=== PATIENT | female | born 1970 | race Caucasian/White ===

== ENCOUNTER → 2019-12-19 08:59 | Outpatient (BNVA) | payer BC, SELFPAY | PROVIDERS: Family Provider Family Medicine; Visit Provider Nurse Practitioner Women's Health | DX: Z01.419 Encounter for gynecological examination (general) (routine) without abnormal findings (principal); N95.1 Menopausal and female climacteric states | CPT/HCPCS: 88175 ==

== ENCOUNTER → 2020-01-22 08:51 | Outpatient (BNVA) | payer BC, SELFPAY | PROVIDERS: Family Provider Family Medicine; Visit Provider Nurse Practitioner Women's Health | DX: N95.0 Postmenopausal bleeding (principal) | CPT/HCPCS: 76830 ==

== ENCOUNTER 2020-02-10 12:46 | Emergency (ER) | payer BC, SELFPAY ==
--- NOTE | 2020-02-10 | XR_ITS ---
WS: [id number] Exam: XR chest 1V portable [id number] Date/Time of Exam: 02/10/2020 3:48 PM Reason For Exam: COVID symptoms No priors. There are patchy infiltrates scattered throughout both lungs. Normal cardiomediastinal structures and bony elements. No pneumothorax or pleural effusions. XR/XR chest 1V portable [id number] IMPRESSION: 1. Patchy groundglass pneumonic infiltrates noted bilaterally suggesting pneumo cade. This appearance is nonspecific but can be seen with Covid pneumonia.
[2020-02-10 13:04] VITALS: BP 137/91; PULSE 109; RESP 16; TEMP 36.4; O2SAT 94; BMI 34.7
--- NOTE | 2020-02-10 15:25 | W.ED.COVID ---
Documented by User: TIFFANIE Nieves 02/12/20 07:05 HPI - COVID General: Chief Complaint: COVID symptoms Stated Complaint: SOB, COVID POSITIVE Time Seen by Provider: 02/10/20 14:54 Triage information: Has fever, cough or shortness of breath. Exposure to COVID + person last 14 days History of Present Illness: HPI Narrative: 49-year-old female patient presents to the emergency department with Covid symptoms. She reports tested + 02/02/2020 at [facility]. She reports continued nausea vomiting diarrhea, reports concerned due to decreased appetite and diabetes. Reports blood sugar this morning was 112. Has not experienced hypoglycemia. She states attempted to get into her primary care who sent her to urgent care, reports urgent care will not see her until she is out of quarantine. She presents today requesting IV fluids and something for nausea and vomiting. She also reports worsening cough. MD complaint: known COVID positive Prior covid testing: yes, results known ([facility]) Prior testing date: 02/02/20 COVID 19 common symptoms: positive fever(s), chills, cough, non-productive cough, dyspnea, fatigue, body aches, headache(s), nasal congestion, nausea, vomiting and diarrhea COVID 19 other sytmptoms: negative chest pain Severity: moderate Pertinent comorbid conditions: diabetes Treatment prior to arrival: acetaminophen, ibuprofen and steroids COVID Results: No Data to Display Review of Systems General: Reports: 10 or more systems reviewed and unremarkable except in HPI and below Const: Reports: fever(s), chills, body aches and fatigue Eyes: Denies: blurry vision or eye redness ENMT: Reports: nasal discharge, nasal congestion and post nasal drip Card: Denies: chest pain, palpitations, irregular heart rhythm, swelling of feet/ankles or lightheadedness Resp: Reports: dyspnea and non-productive cough GI: Reports: nausea, vomiting and diarrhea; Denies: abdominal pain, constipation, change in bowel habits or pain on defecation : Denies: difficulty voiding or dysuria Musc: Denies: neck pain or back pain Skin/Breast: Denies: rash or pruritus Neuro: Reports: headache(s) Psych: Denies: anxiety or depression Paul/Lymph: Denies: easy bruising [facility] PFSH: Medical History (Updated 02/11/20 @ 12:48 by Teri Calero APRN) Diabetes Hypertension No pertinent past medical history neghx: thyroid,dvt/pe Surgical History H/O shoulder surgery left Hx of prior ablation treatment (~2009) uterine Family History Grandmother Colon cancer Maternal-- dx age 70s Breast cancer Paternal-- dx at age 20's Mother Diabetes Grandfather Hypertension Maternal Stroke Maternal Denies family history of Ovarian cancer Heart disease Hypercholesteremia Bleeding disorder Uterine cancer Social History Additional social history: - Tobacco use: Never Alcohol use: Socially-- drink per week Drug use: Never Physical Exam Const: COMMON NORMALS: no acute distress, patient oriented x3, healthy appearing, alert and well nourished GENERAL APPEARANCE: cooperative, comfortable, well hydrated and other (Does not appear toxic is hydrated) NUTRITIONAL APPEARANCE: obese ORIENTATION/CONSCIOUSNESS: Yes awake, Yes oriented to person, Yes oriented to place and Yes oriented to time HENMT: COMMON NORMALS: normocephalic, atraumatic, EAC's normal, TM's normal bilaterally, Normal external nose present and moist oral mucous membranes HEAD & SCALP: normal to inspection, normocephalic and atraumatic NOSE: Normal external nose present EXTERNAL AUDITORY CANAL: EAC's normal TYMPANIC MEMBRANE: TM's normal bilaterally MOUTH: Normal oral and palatal mucosa present Eye: COMMON NORMALS: Equal, round and reactive pupils present and EOMs intact bilaterally GENERAL EYE: appearance normal, both eyes and all related structures PUPIL: Yes Equal, round and reactive pupils present Neck/C-Spine: COMMON NORMALS: full ROM and no lymphadenopathy GENERAL: Yes normal visual inspection and Yes trachea midline CERVICAL SPINE: Yes cervical ROM normal Lymph: LYMPHATIC: no lymphadenopathy noted Chest: COMMONS NORMALS: normal inspection of the chest and normal palpation of entire chest wall Resp: COMMON NORMALS: normal respiratory effort, No retractions, No use of accessory muscles and clear to auscultation bilaterally EFFORT & INSPECTION: Yes able to speak in complete sentences, No decreased respiratory effort and No labored AUSCULTATION: clear to auscultation bilaterally Cardio: COMMON NORMALS: regular rate, regular rhythm, S1 normal heart sound present, S2 normal heart sound present and Peripheral pulses 2+ throughout RATE: regular rate RHYTHM: regular rhythm HEART SOUNDS: S1 normal heart sound present and S2 normal heart sound present PERIPHERAL PULSES: Peripheral pulses 2+ throughout GI: COMMON NORMALS: Normal to inspection, nondistended, normoactive bowel sounds present, Soft to palpation and non-tender INSPECTION: Yes normal to inspection PALPATION: Yes Soft to palpation : COMMON NORMALS: Yes no CVA tenderness BLADDER/KIDNEY EXAM: Yes no CVA tenderness Back/Pelvis: COMMON NORMALS: no CVA tenderness and thoracic and lumbar spine normal to inspection Extremity: COMMON NORMALS: normal to inspection, full ROM and capillary refill normal GENERAL: Yes normal exam except as noted Neuro: COMMON NORMALS: patient oriented x3 and no focal motor deficits SENSORIUM/ORIENTATION: Yes alert, Yes oriented to person, Yes oriented to place and Yes oriented to time Psych: COMMON NORMALS: mental status grossly normal, Normal thought process present and cooperative ACTIVITY/MOTOR BEHAVIOR: Yes appropriate eye contact THOUGHT PROCESS: Normal thought process present Skin: COMMON NORMALS: no rashes or lesions noted and turgor normal GENERAL SKIN EXAM: no rashes or lesions noted and turgor normal Course Vital Signs: Vital signs: Vital Signs Temperature 97.6 F 02/10/20 13:04 Pulse Rate 101 H 02/10/20 19:34 Respiratory Rate 16 02/10/20 19:34 Blood Pressure 117/78 02/10/20 19:34 Pulse Oximetry 94 02/10/20 19:34 MDM - COVID Lab Data: Labs: Lab Results 02/10/20 02/10/20 Range/Units 18:05 18:05 WBC 9.6 (4.0-10.0) 10^3/ uL RBC 4.99 (4.1-5.3) 10^6/u L Hgb 14.0 (11.5-15.3) g/dL Hct 42.4 (37.0-47.0) % MCV 85.0 (81-99) fL MCH 28.1 (28.0-34.0) pg MCHC 33.0 (30.0-36.0) g/dL RDW 12.8 (12.1-15.1) % Plt Count 255 (130-400) 10^3/c mm MPV 9.1 (7.4-10.4) fL Neut % (Auto) 66.4 % Lymph % (Auto) 21.5 % [place] % (Auto) 9.7 % Eos % (Auto) 1.6 % Baso % (Auto) 0.3 % Neut # (Auto) 6.40 (1.8-7.7) 10^3/u L Lymph # (Auto) 2.1 (0.8-4.8) 10^3/u L [place] # (Auto) 0.9 (0.2-0.9) 10^3/u L Eos # (Auto) 0.2 (0.0-0.8) 10^3/u L Baso # (Auto) 0.0 (0.0-0.1) 10^3/u L Nucleated RBC % (a uto) 0 % Nucleated RBCs # 0.0 /100WBC Sodium 137 (136-145) mmol/L Potassium 3.2 L (3.5-5.1) mmol/L Chloride 96 L (98-107) mmol/L Carbon Dioxide 29 (22-29) mmol/L Anion Gap 15.2 (5-19) BUN 6 (6-20) mg/dL Creatinine 0.4 L (0.5-0.9) mg/dL GFR Calculation 170.4 H (90-130) mL/min Glucose 220 H (65-115) mg/dL Calculated Osmolal ity 288 (285-295) mOsm/k g Calcium 9.4 (8.5-10.5) mg/dL Total Bilirubin 0.6 (0.15-1.2) mg/dL AST 18 (0-32) U/L ALT 26 (0-33) U/L Alkaline Phosphata se 110 H (35-105) IU/L Total Protein 7.0 (6.6-8.7) g/dL Albumin 3.8 (3.5-5.2) g/dL Globulin 3.2 (1.3-4.6) g/dL Imaging Data: CXR: Radiologist's impression: [address] [address] XRay Report Signed Patient: Farrah Burgess Unit #: [id number] : 1970 Age/Sex: 49 / F ADM Date: 02/10/20 Loc: ER Room/Bed: Attending Dr: Ordering Provider/Ordering MD: Suzan Arana Date of Service: 02/10/20 Procedure(s): XR chest 1V portable [id number] Accession Number(s): [id number] Report Number: [id number] WS: [id number] Exam: XR chest 1V portable [id number] Date/Time of Exam: 02/10/2020 3:48 PM Reason For Exam: COVID symptoms No priors. There are patchy infiltrates scattered throughout both lungs. Normal cardiomediastinal structures and bony elements. No pneumothorax or pleural effusions. XR/XR chest 1V portable [id number] IMPRESSION: 1. Patchy groundglass pneumonic infiltrates noted bilaterally suggesting pneumonia. This appearance is nonspecific but can be seen with Covid pneumonia. Dictated By: Wilfredo Sheikh DO Signed By: Wilfredo Sheikh DO Signed Date/Time: 02/10/201622 DD/ 162 COVID Results: No Data to Display Discharge Plan Discharge Patient Disposition: Home Clinical Impression: COVID-19, Viral illness Condition: Stable Prescriptions: New Zofran 4 mg tablet 4 mg PO Q4H 5 Days Qty: 14 RF: 0 benzonatate 200 mg capsule 200 mg PO TID PRN (Reason: cough) Qty: 20 RF: 0 azithromycin 250 mg tablet See Rx Instructions .ROUTE .COMPLEX Qty: 6 RF: 0 No Action Ozempic 0.25 mg or 0.5 mg(2 mg/1.5 mL) pen injector SUBCUT RF: 0 metformin 1,000 mg tablet 1,000 mg PO BID RF: 0 omeprazole magnesium [Prilosec OTC] 20 mg tablet,delayed release (DR/EC) 20 mg PO DAILY RF: 0 lisinopril 5 mg tablet 5 mg PO DAILY RF: 0 Basaglar KwikPen U-100 Insulin 100 unit/mL (3 mL) insulin pen 60 unit SUBCUT DAILY RF: 0 multivitamin Tablet 1 tab PO DAILY RF: 0 cholecalciferol (vitamin D3) 25 mcg (1,000 unit) capsule 25 mcg PO DAILY RF: 0 zinc acetate 25 mg (zinc) capsule 25 mg PO DAILY RF: 0 ascorbic acid (vitamin C) 100 mg tablet 100 mg PO DAILY RF: 0 Zyrtec 10 mg capsule 10 mg PO DAILY RF: 0 Digestive Advantage Advanced 10 billion cell capsule PO RF: 0 medroxyprogesterone [Provera] 2.5 mg tablet 2.5 mg PO DAILY Qty: 30 RF: 3 metronidazole 0.75 % gel 1 appful vaginal DAILY 5 Days Qty: 70 RF: 0 CombiPatch 0.05-0.25 mg/24 hr patch semiweekly 1 patch transdermal .twice weekly Qty: 24 RF: 3 Discharge Orders: Discharge ED (Routine); Ordered 02/10/20 Ordered By: Suzan Arana Referrals: Augusto Carrasquillo, [Family Provider] - Discharge Diet: Advance as tolerated and Clear Liquid Discharge Activity: Limit activity as instructed Patient Instructions: Acute Nausea and Vomiting (ED), Viral Syndrome (ED) Activity Restrictions/Additional Instructions: Return to the hospital tomorrow for bam infusion, monoclonal antibody for Covid Return to the emergency department if you develop lightheadedness, chest pain or inability to breathe or difficulty catching her breath Take azithromycin until gone, even if better Follow-up with your primary care provider soon as you are off quarantine Small frequent meals, eat light, avoid greasy fried fatty spicy foods until better. Sign Out Sign Out Data: Patient Sign Out occurred on 02/10/20 at 19:16. Patient's care was discussed, and care was transferred from TIFFANIE Nieves to LAURI Villagran. Sign Out Comment: Serology test pending, patient will receive BAM infusion tomorrow as an outpatient, IV fluids are infusing, she is able to tolerate p.o. fluids upon exam, patient will be discharged if serology findings are not acutely abnormal. Last updated by Suzan Arana ARNP at 02/10/20 18:19 Coding Level of Care Code ED Carpenter Supervisor [employer] for Chg Fwd Exam Comprehensive Documented by User: LAURI Villagran 02/10/20 19:40 HPI - COVID General: Chief Complaint: COVID symptoms Stated Complaint: SOB, COVID POSITIVE Time Seen by Provider: 02/10/20 14:54 COVID Results: No Data to Display [facility] PFSH: Medical History (Updated 02/11/20 @ 12:48 by Teri Calero APRN) Diabetes Hypertension No pertinent past medical history neghx: thyroid,dvt/pe Surgical History H/O shoulder surgery left Hx of prior ablation treatment (~2009) uterine Family History Grandmother Colon cancer Maternal-- dx age 70s Breast cancer Paternal-- dx at age 20's Mother Diabetes Grandfather Hypertension Maternal Stroke Maternal Denies family history of Ovarian cancer Heart disease Hypercholesteremia Bleeding disorder Uterine cancer Social History Additional social history: - Tobacco use: Never Alcohol use: Socially-- drink per week Drug use: Never Course Vital Signs: Vital signs: Vital Signs Temperature 97.6 F 02/10/20 13:04 Pulse Rate 101 H 02/10/20 19:34 Respiratory Rate 16 02/10/20 19:34 Blood Pressure 117/78 02/10/20 19:34 Pulse Oximetry 94 02/10/20 19:34 MDM - COVID MDM Narrative: Medical decision making narrative: Patient is a 49-year-old female comes to the ED with shortness of breath. Patient tested positive for COVID-19 at [facility] on February 01. Patient has a past medical history of diabetes and qualifies for monoclonal antibody treatment for Covid. Suzan Arana put an order with case management for patient to get outpatient Bamlanivimab treatment tomorrow. pt discharge with zofran, zpak and benzonatate. Case management will contact tomorrow to set up outpatient monoclonal antibody treatment. Patient understood and agreed with plan. Lab Data: Labs: Lab Results 02/10/20 02/10/20 Range/Units 18:05 18:05 WBC 9.6 (4.0-10.0) 10^3/ uL RBC 4.99 (4.1-5.3) 10^6/u L Hgb 14.0 (11.5-15.3) g/dL Hct 42.4 (37.0-47.0) % MCV 85.0 (81-99) fL MCH 28.1 (28.0-34.0) pg MCHC 33.0 (30.0-36.0) g/dL RDW 12.8 (12.1-15.1) % Plt Count 255 (130-400) 10^3/c mm MPV 9.1 (7.4-10.4) fL Neut % (Auto) 66.4 % Lymph % (Auto) 21.5 % [place] % (Auto) 9.7 % Eos % (Auto) 1.6 % Baso % (Auto) 0.3 % Neut # (Auto) 6.40 (1.8-7.7) 10^3/u L Lymph # (Auto) 2.1 (0.8-4.8) 10^3/u L [place] # (Auto) 0.9 (0.2-0.9) 10^3/u L Eos # (Auto) 0.2 (0.0-0.8) 10^3/u L Baso # (Auto) 0.0 (0.0-0.1) 10^3/u L Nucleated RBC % (a uto) 0 % Nucleated RBCs # 0.0 /100WBC Sodium 137 (136-145) mmol/L Potassium 3.2 L (3.5-5.1) mmol/L Chloride 96 L (98-107) mmol/L Carbon Dioxide 29 (22-29) mmol/L Anion Gap 15.2 (5-19) BUN 6 (6-20) mg/dL Creatinine 0.4 L (0.5-0.9) mg/dL GFR Calculation 170.4 H (90-130) mL/min Glucose 220 H (65-115) mg/dL Calculated Osmolal ity 288 (285-295) mOsm/k g Calcium 9.4 (8.5-10.5) mg/dL Total Bilirubin 0.6 (0.15-1.2) mg/dL AST 18 (0-32) U/L ALT 26 (0-33) U/L Alkaline Phosphata se 110 H (35-105) IU/L Total Protein 7.0 (6.6-8.7) g/dL Albumin 3.8 (3.5-5.2) g/dL Globulin 3.2 (1.3-4.6) g/dL COVID Results: No Data to Display Discharge Plan Discharge Patient Disposition: Home Clinical Impression: COVID-19, Viral illness Condition: Stable Prescriptions: New Zofran 4 mg tablet 4 mg PO Q4H 5 Days Qty: 14 RF: 0 benzonatate 200 mg capsule 200 mg PO TID PRN (Reason: cough) Qty: 20 RF: 0 azithromycin 250 mg tablet See Rx Instructions .ROUTE .COMPLEX Qty: 6 RF: 0 No Action Ozempic 0.25 mg or 0.5 mg(2 mg/1.5 mL) pen injector SUBCUT RF: 0 metformin 1,000 mg tablet 1,000 mg PO BID RF: 0 omeprazole magnesium [Prilosec OTC] 20 mg tablet,delayed release (DR/EC) 20 mg PO DAILY RF: 0 lisinopril 5 mg tablet 5 mg PO DAILY RF: 0 Basaglar KwikPen U-100 Insulin 100 unit/mL (3 mL) insulin pen 60 unit SUBCUT DAILY RF: 0 multivitamin Tablet 1 tab PO DAILY RF: 0 cholecalciferol (vitamin D3) 25 mcg (1,000 unit) capsule 25 mcg PO DAILY RF: 0 zinc acetate 25 mg (zinc) capsule 25 mg PO DAILY RF: 0 ascorbic acid (vitamin C) 100 mg tablet 100 mg PO DAILY RF: 0 Zyrtec 10 mg capsule 10 mg PO DAILY RF: 0 Digestive Advantage Advanced 10 billion cell capsule PO RF: 0 medroxyprogesterone [Provera] 2.5 mg tablet 2.5 mg PO DAILY Qty: 30 RF: 3 metronidazole 0.75 % gel 1 appful vaginal DAILY 5 Days Qty: 70 RF: 0 CombiPatch 0.05-0.25 mg/24 hr patch semiweekly 1 patch transdermal .twice weekly Qty: 24 RF: 3 Discharge Orders: Discharge ED (Routine); Ordered 02/10/20 Ordered By: Suzan Arana Referrals: Augusto Carrasquillo, [Family Provider] - Discharge Diet: Advance as tolerated and Clear Liquid Discharge Activity: Limit activity as instructed Patient Instructions: Acute Nausea and Vomiting (ED), Viral Syndrome (ED) Activity Restrictions/Additional Instructions: Return to the hospital tomorrow for bam infusion, monoclonal antibody for Covid Return to the emergency department if you develop lightheadedness, chest pain or inability to breathe or difficulty catching her breath Take azithromycin until gone, even if better Follow-up with your primary care provider soon as you are off quarantine Small frequent meals, eat light, avoid greasy fried fatty spicy foods until better. Sign Out Sign Out Data: Patient Sign Out occurred on 02/10/20 at 19:16. Patient's care was discussed, and care was transferred from TIFFANIE Nieves to LAURI Villagran. Sign Out Comment: Serology test pending, patient will receive BAM infusion tomorrow as an outpatient, IV fluids are infusing, she is able to tolerate p.o. fluids upon exam, patient will be discharged if serology findings are not acutely abnormal. Last updated by Suzan Arana ARNP at 02/10/20 18:19 Coding Level of Care Code ED Carpenter Supervisor [employer] for Chg Fwd Exam Comprehensive
[2020-02-10] MEDS: ondansetron 4 MG Tablet PO (18:04)
[2020-02-10] MEDS: sodium chloride 0.9% 1,000 ML 999 ML IV (18:04)
[2020-02-10 18:52] LABS: Basophils % 0.3 %; Eosinophils # 0.2 10^3/uL (0.0-0.8); Eosinophils % 1.6 %; Hematocrit 42.4 % (37.0-47.0); Lymphocytes # 2.1 10^3/uL (0.8-4.8); Lymphocytes % 21.5 %; Mean Corpuscular Hemoglobin 28.1 pg (28.0-34.0); Mean Platelet Volume 9.1 fL (7.4-10.4); Monocytes # 0.9 10^3/uL (0.2-0.9); Monocytes % 9.7 %; Neutrophils % 66.4 %; Nucleated Red Blood Cells % 0 %; Platelet Count 255 10^3/cmm (130-400); Red Blood Count 4.99 10^6/uL (4.1-5.3); Red Cell Distribution Width 12.8 % (12.1-15.1); White Blood Count 9.6 10^3/uL (4.0-10.0)
[2020-02-10 19:03] VITALS: O2SAT 96
[2020-02-10 19:34] VITALS: BP 117/78; PULSE 101; RESP 16; O2SAT 94
[2020-02-10 19:52] LABS: Alanine Aminotransferase 26 U/L (0-33); Albumin Level 3.8 g/dL (3.5-5.2); Alkaline Phosphatase 110 IU/L (35-105); Anion Gap 15.2 (5-19); Aspartate Amino Transferase 18 U/L (0-32); Blood Urea Nitrogen 6 mg/dL (6-20); Calcium 9.4 mg/dL (8.5-10.5); Carbon Dioxide 29 mmol/L (22-29); Chloride 96 mmol/L (98-107); Globulin 3.2 g/dL (1.3-4.6); Glomerular Filtration Rate 170.4 mL/min (90-130); Glucose 220 mg/dL (65-115); Osmolality Calculated 288 mOsm/kg (285-295); Potassium 3.2 mmol/L (3.5-5.1); Sodium 137 mmol/L (136-145); Total Bilirubin 0.6 mg/dL (0.15-1.2)
--- NOTE | 2020-02-12 15:26 | DCPLANNER ---
training program manager had message to schedule an outpatient BAM infusion. training program manager faxed the order and patients information to centralized scheduling for the infusion to be scheduled.
== END 2020-02-10 19:35 | disposition home or self-care (01) ==
PROVIDERS: Nurse Practitioner Family; Emergency Provider Physician Assistant; Family Provider Family Medicine
DX: U07.1 COVID-19 (principal); Z79.84 Long term (current) use of oral hypoglycemic drugs; E11.9 Type 2 diabetes mellitus without complications; I10 Essential (primary) hypertension
CPT/HCPCS: 12345; 71045; 80053; 85025; 96360; 99282; 99283; J7030; Q0162

== ENCOUNTER 2020-02-11 11:56 | Outpatient (CLI) | payer BC, SELFPAY ==
[2020-02-11 12:17] VITALS: BP 113/75; PULSE 97; RESP 17; TEMP 36.8; O2SAT 94; BMI 34.7
--- NOTE | 2020-02-11 12:45 | AMB.MCA ---
Patient Information Referred by: Suzan Aburto / Zac Hart ED [facility]. Symptom onset date: 02/02/20 COVID 19 common symptoms: positive fever(s), chills, cough, non-productive cough, fatigue and body aches COVID 19 other sytmptoms: negative chest pressure, chest pain, pleuritic pain, requiring oxygen, requiring more oxygen or respiratory distress Severity: moderate Treatment prior to arrival: none [facility] COVID test results: No Data to Display outside results available, scanned Criteria/Plan Inclusion/Exclusion Criteria weight >/= 40kg BMI >/= 35 and has diabetes not requiring hospitalization, not requiring oxygen (if not chronically on oxygen) and no increase oxygen requirement (if chronically on oxygen) Patient education patient/caregiver received/reviewed fact sheet, Emergency Use Authorization/unapproved drug status discussed with patient/caregiver, alternatives to this treatment discussed with patient/caregiver, risks and benefits of medication reviewed with patient/caregiver, patient/caregiver given opportunity for questions, which were answered and patient/caregiver consents to receiving Monoclonal Antibody Treatment Related diagnosis (1) COVID-19: Plan for treatment Meets criteria for Monoclonal Antibody infusion
[2020-02-11 13:53] VITALS: BP 115/77; PULSE 92; RESP 16; TEMP 36.7; O2SAT 93
[2020-02-11 14:08] VITALS: BP 111/78; PULSE 94; RESP 16; TEMP 36.6; O2SAT 92
[2020-02-11 15:38] VITALS: BP 116/85; PULSE 100; RESP 17; TEMP 36.6; O2SAT 94
--- NOTE | 2020-02-18 14:01 | DCPLANNER ---
Addendum entered by Sia Clay 02/25/20 13:34: retail sales manager called patient to check on patient 10 days after getting the infusion. Patient stated that she is feeling good, returned to her everyday routine, returned to work. Patient stated that she has not been admitted to hospital. Original Note: retail sales manager had message that patient received the BAM infusion. retail sales manager called to check on patient after receiving the infusion. Patient stated that she tolorated the infusion well. Before the infusion, patient stated that she had a fever, cough, was weak, had dierreha, was fatique, was short of breath, was dehydrated. Patient stated that she was vomiting, and lost her sense of taste and smell. retail sales manager asked patient if she wanted a follow up appointment scheduled with primary care, patient stated that she did not feel that she needed a follow up appointment.
== END 2020-02-11 13:39 | disposition home or self-care (01) ==
PROVIDERS: Family Provider Family Medicine; Referring Provider Nurse Practitioner Family; Visit Provider Physician Assistant
DX: U07.1 COVID-19 (principal)
CPT/HCPCS: J7050

== ENCOUNTER 2020-02-20 09:10 | Outpatient (CLI) | payer BC, SELFPAY ==
--- NOTE | 2020-02-20 09:30 | MM_ITS ---
WS: [id number] BILATERAL DIGITAL SCREENING MAMMOGRAPHY WITH CAD CLINICAL INFORMATION: breast cancer screening HISTORY: Screening mammogram. No current complaints. COMPARISON: TECHNIQUE: Bilateral CC and MLO views. FINDINGS: The breasts are composed of heterogeneous fibroglandular density tissue, which can limit the detectio n of small underlying mass lesions. No suspicious mass, asymmetry, calcifications, or architectural d istortion. No evidence of malignancy. MM/[place] [id number] IMPRESSION: BI-RADS: 1-Negative FOLLOW UP: 1 Year Follow-up Recommend return to annual screening mammography.
== END 2020-02-20 09:11 | disposition home or self-care (01) ==
LOC: RADSHAW 09:13
PROVIDERS: PCP Family Medicine; Visit Provider Nurse Practitioner Women's Health
DX: Z12.31 Encounter for screening mammogram for malignant neoplasm of breast (principal)
CPT/HCPCS: 77067

== ENCOUNTER → 2020-03-05 11:49 | Outpatient (BNVA) | payer BC, SELFPAY | PROVIDERS: PCP Family Medicine; Visit Provider Obstetrics & Gynecology | DX: Z01.812 Encounter for preprocedural laboratory examination (principal) | CPT/HCPCS: 87635 ==

== ENCOUNTER 2020-03-11 14:37 | Observation (INO) | payer BC, SELFPAY ==
[2020-03-09 12:07] VITALS: BMI 34.2
[2020-03-09 13:21] LABS: Add Urine Microscopic? NO
[2020-03-09 13:29] LABS: Basophils # 0.1 10^3/uL (0.0-0.1); Basophils % 0.7 %; Eosinophils # 0.2 10^3/uL (0.0-0.8); Eosinophils % 2.5 %; Hematocrit 42.4 % (37.0-47.0); Lymphocytes # 3.1 10^3/uL (0.8-4.8); Lymphocytes % 43.9 %; Mean Corpuscular Hemoglobin 28.7 pg (28.0-34.0); Mean Corpuscular Volume 86.9 fL (81-99); Mean Platelet Volume 9.7 fL (7.4-10.4); Monocytes # 0.5 10^3/uL (0.2-0.9); Monocytes % 6.3 %; Neutrophils # 3.32 10^3/uL (1.8-7.7); Neutrophils % 46.3 %; Nucleated Red Blood Cells % 0 %; Platelet Count 262 10^3/cmm (130-400); Red Blood Count 4.88 10^6/uL (4.1-5.3); Red Cell Distribution Width 13.6 % (12.1-15.1); White Blood Count 7.2 10^3/uL (4.0-10.0)
[2020-03-09 13:49] LABS: Bilirubin Urine Neg (Negative); Blood Urine Neg (Negative); Glucose Urine UA Norm (Normal); Ketones Urine Negative (Negative); Leukocyte Esterase Urine Negative (Negative); Nitrate Urine Negative (Negative); Protein Urine Neg (Negative); Specific Gravity, Urine 1.005 (1.005-1.030); Urine Appearance Clear (CLEAR); Urine Color Straw (Yellow); Urobilinogen Urine Norm (Negative); pH Urine 6 (5-7)
[2020-03-09 14:07] LABS: Alanine Aminotransferase 28 U/L (0-33); Albumin Level 4.2 g/dL (3.5-5.2); Alkaline Phosphatase 77 IU/L (35-105); Anion Gap 14.8 (5-19); Aspartate Amino Transferase 18 U/L (0-32); Blood Urea Nitrogen 8 mg/dL (6-20); Calcium 9.7 mg/dL (8.5-10.5); Carbon Dioxide 27 mmol/L (22-29); Chloride 102 mmol/L (98-107); Globulin 2.8 g/dL (1.3-4.6); Glomerular Filtration Rate 131.7 mL/min (90-130); Glucose 221 mg/dL (65-115); Osmolality Calculated 295 mOsm/kg (285-295); Potassium 3.8 mmol/L (3.5-5.1); Sodium 140 mmol/L (136-145); Total Bilirubin 0.4 mg/dL (0.15-1.2)
--- NOTE | 2020-03-09 14:19 | P.ANESASSM_ITS ---
Pre-Anesthetic Assessment Pre-Anesthetic Assessment: Height/Weight: Height 1.59 m Weight 86.183 kg Preop Diagnosis: Postmenopausal bleeding uterine fibroid cystocele stage I stress incontinen Proposed Procedure: Operation Date: 03/11/20 09:30 Proposed Procedures p Total Vaginal Hysterectomy 17443 N95.0(Not Applicable) - Ilir Vásquez MD s Salpingo-Oophorectomy (Vaginal)(Not Applicable) - Ilir Vásquez MD Was Beta Zhou taken within 24 hours: N/A Social: Social History: No alcohol and No tobacco Exam: Pre-Anes Outpt Exam: alert, oriented x 3, clear to auscultation bilatera lly and regular rate & rhythm Airway: Submandibular: WNL Cervical ROM: WNL MP: 2 Dentition: Full Pulmonary: Pulmonary: Cough Comments: Covid 19 in November CV/HEM: CV/HEM: HTN GI: GI: GERD Metabolic: Metabolic: DM and Morbid obesity Anesthetic Plan: ASA status: 3 Anesthesia: General Risk of > 500 ml blood loss (7ml/kg in children): No PFSH Anesthesia PFSH: Medical History Diabetes Hypertension No pertinent past medical history neghx: thyroid,dvt/pe Surgical History H/O shoulder surgery left Hx of prior ablation treatment (~2009) uterine Family History Grandmother Colon cancer Maternal-- dx age 70s Breast cancer Paternal-- dx at age 20's Mother Diabetes Grandfather Hypertension Maternal Stroke Maternal Denies family history of Ovarian cancer Heart disease Hypercholesteremia Bleeding disorder Uterine cancer Social History Additional social history: - Tobacco use: Never Alcohol use: Socially-- drink per week Drug use: Never Female Reproductive History: Date of last menstrual period: 05/02/18 Data Anesthesia CBC & Chem 7: 03/09/20 12:20 03/09/20 12:20 Other Labs: Laboratory Results - last 48 hr 03/09/20 03/09/20 03/09/20 12:20 12:20 12:30 WBC 7.2 RBC 4.88 Hgb 14.0 Hct 42.4 MCV 86.9 MCH 28.7 MCHC 33.0 RDW 13.6 Plt Count 262 MPV 9.7 Neut % (Auto) 46.3 Lymph % (Auto) 43.9 [place] % (Auto) 6.3 Eos % (Auto) 2.5 Baso % (Auto) 0.7 Neut # (Auto) 3.32 Lymph # (Auto) 3.1 [place] # (Auto) 0.5 Eos # (Auto) 0.2 Baso # (Auto) 0.1 Nucleated RBC % (auto) 0 Nucleated RBCs # 0.0 Sodium 140 Potassium 3.8 Chloride 102 Carbon Dioxide 27 Anion Gap 14.8 BUN 8 Creatinine 0.5 GFR Calculation 131.7 H Glucose 221 H Calculated Osmolality 295 Calcium 9.7 Total Bilirubin 0.4 AST 18 ALT 28 Alkaline Phosphatase 77 Total Protein 7.0 Albumin 4.2 Globulin 2.8 Urine Color Straw Urine Appearance Clear Urine pH 6 Ur Specific [place] 1.005 Urine Protein Neg Urine Glucose (UA) Norm Urine Ketones Negative Urine Blood Neg Urine Nitrate Negative Urine Bilirubin Neg Urine Urobilinogen Norm Ur Leukocyte Esterase Negative Cardiac Studies: No Data to Display
[2020-03-11] VITALS (12 sets, daily range): BP systolic 99–146; BP diastolic 59–108; PULSE 62–107; RESP 14–18; TEMP 36.4–36.8; O2SAT 92–100
--- NOTE | 2020-03-11 10:37 | W.PM.OPSUD ---
Surgery/Procedure H&P Update DATE OF PROCEDURE: March 11, 2020 DATE H&P PERFORMED: 03/09/20 H&P UPDATE INFORMATION: I have reviewed H&P completed within last 30 days, I have examined patient prior to procedure and No changes to prior documentation PREOP DIAGNOSIS: Postmenopausal bleeding uterine fibroid cystocele stage I stress incontinen PLANNED PROCEDURE: Operation Date: 03/11/20 11:50 Proposed Procedures p Total Vaginal Hysterectomy 93515 N95.0(Not Applicable) - Ilir Vásquez MD s Salpingo-Oophorectomy (Vaginal)(Not Applicable) - Ilir Vásquez MD
[2020-03-11 10:40] LABS: OR HCG Qualitative Urine Negative (Negative)
[2020-03-11] MEDS: scopolamine 1.5 Patch 1 PATCH TRANSDERMA (10:55)
[2020-03-11 11:08] LABS: Glucose Point of Care 117 mg/dL (70-110)
[2020-03-11] MEDS: sodium chloride 0.9% 500 ML IV ×2 (11:15→20:07)
[2020-03-11] MEDS: ceFOXitin 2,000 MG in sodium chloride 0.9% (plus) 50 ML 100 MG IV (12:13)
[2020-03-11] MEDS: estrogens Conjugated Cream 30 gm 1 APPLIC VAGINAL (13:26)
--- NOTE | 2020-03-11 13:56 | P.OP_ITS ---
Operative Report Date of procedure: March 11, 2020 Pre-op Diagnosis: Postmenopausal bleeding uterine fibroid cystocele stage I stress incontinen Post-op diagnosis: same Procedure Done: Total vaginal hysterectomy bilateral salpingo-oophorectomy. Single incision mid urethral sling. Cystoscopy. Specimens removed/disposition: Uterus, with left and right fallopian tubes and ovaries Surgeon: Ilir Vásquez MD Anesthesia: General Estimated blood loss (mL): 100 IV fluids (mL): 800 Urine output (mL): 200 Complications: None Condition: stable Disposition: PACU Brief History: 49-year-old female with uterine fibroids postmenopausal bleeding and stress urinary incontinence cystocele stage I Procedure: After informed consent and risks, benefits, indications and alternatives reviewed with the patient was taken to the operating room. The patient was placed in dorsal lithotomy position prepped, and draped in the usual sterile fashion. The pre-procedure timeout verifying the correct patient, procedure, site and side, could not requirements was performed and acknowledge by the OR team. A Weiss catheter was placed. A Bookwalter vaginal retractor was placed into the vagina in usual manner visualize the cervix. Cervix was grasped with a single tooth tenaculum and circumferentially infiltrated with 1% Xylocaine with epinephrine. Then cervix was circumferentially incised with bovie and the bladder was dissected off the pubovesical cervical fascia anteriorly with a sponge stick and Metzenbaum scissors. The anterior peritoneal reflection was identified and the anterior cul-de-sac was entered sharply with Metzenbaum scissors. The same procedure was performed posteriorly and a posterior colpotomy was made through the posterior cul-de-sac space without difficulty and the posterior blade of the Bookwalter vaginal retractor was advanced posteriorly into the cul-de-sac. At this time, the left and right uterosacral ligaments were isolated and ligated with 0 Vicryl. The Enseal device was placed over the uterosacral ligaments on either side and was then used in a serial fashion up through the cardinal ligaments bilaterally cross-clamped, cut, and sealed with the Enseal device. Finally, the uterine arteries were cross-clamped, cut, sealed and ligated with the Enseal device. Hemostasis was assured. The broad ligaments were then serially clamped, sealed and cut with the Enseal device on both sides. Excellent hemostasis was visualized. Both cornua were clamped, sealed and cut with the Enseal device. Then the pedicles were then suture ligated with excellent hemostasis. The uterus was excised and submitted for pathologic evaluation. No other abnormalities were noted in the pelvic cavity. The peritoneum was then closed in a pursestring fashion with 0 Vicryl suture. The vaginal cuff angles were closed with [id number] #0 Vicryl suture on both sides and transfixed with the ipsilateral cardinal and uterosacral ligaments. The remainder of the vaginal cuff was closed with #0 Vicryl in a running locked fashion. The anterior vaginal mucosa beneath the midurethra was infiltrated with 0.5% Marcaine with epinephrine. A vertical midline incision was made beneath the midurethra, nearly 1.5 cm length. Careful submucosal dissection was performed bilaterally up to the interior portion of the inferior pubic ramus. The insertion of adductor longus tendon on the patient?s pubic ramus was identified as reference land suzi. Palpated the notch along the internal edge of ischiopubic ramus where the adductor longus tendon and the inferior pubic ramus meet. The Altis single incision sling (SIS) was selected. With thin porcine graft the mesh of the sling was lined anteriorly and posteriorly with the graft. Then the needle of the SIS inserted aiming at the location of this notch. One of the integrated self-fixating tips place onto the needle by sliding it over the end of the needle. The needle/sling assembly was inserted toward the location of identified reference notch making sure that the flat of the handle is perpendi cular to the desired path. The needle was tracked along the posterior surface of the ischiopubic ramus until the midline suzi on the mesh is approximately at the midline position under the urethra. The needle was removed and the same was repeated on the contralateral side until the appropriate sling tension under the urethra was achieved ensuring that the mesh lays flat. The needle was removed and vaginal incision was closed in a running interlocking fashion with 2-0 Vicryl. At this time, instruments were removed from the vagina at hemostasis assured. Then the Weiss catheter was removed and cystoscope was inserted. The bladder was filled with sterile water. Complete evaluation of the bladder mucosa was performed noting no lacerations, dimpling, tears, bleeding of the mucosa or muscular layers. Both ureteral orifices were identified. Prompt excretion of urine from both ureteral orifices was noted. Cystoscope was withdrawn. Weiss catheter was then placed yielding clear haven urine. A vaginal packing with Premarin cream was placed and the patient was taken out of dorsal lithotomy position and awakened from the general anesthesia. The patient tolerated the procedure well and was taken to the PACU recovery room in a stable condition. Sponge, lap, needle and instruments counts were correct x3.
[2020-03-11 14:17] LABS: Glucose Point of Care 105 mg/dL (70-110)
--- NOTE | 2020-03-11 14:21 | SUR.PHASEI ---
PT VERY DISORIENTED AND TRYING TO GET UP , PT REORIENTED REPEATEDLY BUT TO NO AVAIL, PT KICKING AND PULLING AT WIRES , SEE IV MED GIVEN AT BEDSIDE BY REAR ADMIRAL. PT REPOSITIONED SELF TO LT SIDE WARM BLANKETS TO PT AND PT SLEEPING SOUNDLY WITH GOOD RESP EFFORT SINCE ARRIVAL TO PACU VSS. NO DISTRESS NOTED VAGINAL PACKING IN PLACE BILAT SCDS ON MACIEL CATHETER TO DD WITH BLUE URINE NOTED TO TUBING AND BAG, STATLOCK TO RT THIGH.
--- NOTE | 2020-03-11 14:44 | ANE.PACU2 ---
Inpatient post-anesthesia follow up: Airway intact: Yes Vital signs: Temperature 97.6 F Pulse Rate 84 Respiratory Rate 18 Blood Pressure 113/66 Pulse Oximetry 99 Oxygen Delivery Me thod Room Air Oxygen Flow Rate 8 Fraction of Inspir ed Oxygen Hydration adequate: Yes Nausea and vomiting: No Pain level: 2 Mental status: Baseline
--- NOTE | 2020-03-11 14:46 | SUR.PHASEI ---
1434 PT AWAKE ALERT TALKATIVE DENIES PAIN AND NAUSEA PT TAKING ICE CHIPS ABD SOFT, MACIEL PATENT OF BLUE URINE, PT TO FLOOR PER CART AND RN.
[2020-03-11 16:15] LABS: Glucose Point of Care 145 mg/dL (70-110)
[2020-03-11] MEDS: ketorolac 30 mg/mL INJ IVP ×2 (16:16→21:27)
[2020-03-11] MEDS: dextrose 5%-lactated ringers 1,000 ML 125 ML IV (16:16)
[2020-03-11] MEDS: docusate sodium 100 mg Capsule PO (18:20)
[2020-03-11] MEDS: metformin 500 mg Tablet 1000 MG PO (18:20)
[2020-03-11] MEDS: ondansetron 2 mg/ML SDV 2 mL 4 MG IVP (18:47)
[2020-03-12] MEDS: dextrose 5%-lactated ringers 1,000 ML 125 ML IV (01:11)
[2020-03-12 02:00] VITALS: BP 105/68; PULSE 92; RESP 16
[2020-03-12] MEDS: ketorolac 30 mg/mL INJ IVP (04:13)
[2020-03-12 04:45] LABS: Hematocrit 35.2 % (37.0-47.0); Hemoglobin 11.7 g/dL (11.5-15.3); Mean Corpuscular HGB Conc 33.2 g/dL (30.0-36.0); Mean Corpuscular Hemoglobin 28.7 pg (28.0-34.0); Mean Corpuscular Volume 86.5 fL (81-99); Mean Platelet Volume 9.5 fL (7.4-10.4); Platelet Count 191 10^3/cmm (130-400); Red Blood Count 4.07 10^6/uL (4.1-5.3); Red Cell Distribution Width 13.5 % (12.1-15.1); White Blood Count 9.1 10^3/uL (4.0-10.0)
[2020-03-12] MEDS: metformin 500 mg Tablet 1000 MG PO (08:29)
[2020-03-12] MEDS: docusate sodium 100 mg Capsule PO (08:29)
[2020-03-12] MEDS: pantoprazole DR 40 mg Tablet PO (08:30)
[2020-03-12] MEDS: lisinopril 5 mg Tablet PO (08:30)
[2020-03-12] MEDS: cetirizine 10 mg Tablet PO (08:30)
[2020-03-12] MEDS: cholecalciferol (vitamin D3) 1,000 unit Tablet 1000 UNIT PO (08:30)
[2020-03-12] MEDS: multivitamin therapeutic Tablet 1 TAB PO (08:31)
[2020-03-12] MEDS: insulin glargine 100 units/1 mL 60 UNIT SUBCUT (08:31)
--- NOTE | 2020-03-12 08:32 | PC.NURSE ---
Patient checked her blood sugar and it was 148.
[2020-03-12 09:49] VITALS: BP 106/71; PULSE 90; RESP 16; TEMP 37
[2020-03-12] MEDS: ibuprofen 800 mg tablet PO (14:16)
--- NOTE | 2020-03-12 14:51 | P.DS_ITS ---
Discharge Providers PEDIATRIC PHYSICAL THERAPIST Date of Admission: 03/11/20 14:37 Date of Discharge: 03/12/20 Attending Provider at Admission: Ilir Vásquez MD Attending Provider at Discharge: Ilir Vásquez MD Primary Care Provider: Augusto Carrasquillo DO Diagnoses at Discharge Discharge Diagnosis (1) POP-Q stage 1 cystocele: Status: Acute (2) Urinary, incontinence, stress female: Status: Acute (3) Uterine leiomyoma: Status: Acute Qualifiers: Uterine leiomyoma location: intramural, submucous, and subserous Qualified Code(s): D25.1 - Intramural leiomyoma of uterus; D25.0 - Submucous leiomyoma of uterus; D25.2 - Subserosal leiomyoma of uterus (4) Postmenopausal bleeding: Status: Acute Reason for Visit Reason for Visit: postmeopausal bleeding Brief History: 49-year-old thousand female with postmenopausal bleeding uterine fibroid and urinary stress incontinence Hospital Course Hospital Course 49-year-old thousand female with postmenopausal bleeding uterine fibroid and urinary stress incontinence. Admitted for planned total vaginal hysterectomy with bilateral salpingo-oophorectomy and single incision mid urethral sling. The procedures were performed without complications. Postop observation uneventful. She is afebrile and hemodynamically stable. Tolerating diet well. Ambulating without difficulty. Pain under control. PVR higher than expected at 200 mL patient will go home with Weiss catheter and will follow up at the clinic Monday. Physical Exam Narrative: EXAM NARRATIVE: GA: Alert and oriented ?3. HEENT: WNL. Heart: Regular rate and rhythm. Lungs: Clear to auscultation bilaterally. Abdomen: Bowel sounds present, nontender, minimal tenderness. AUTOGLAZIER: No bleeding. Extremities: No edema, no cyanosis, no calves pain. Urinary Catheter Management^: Weiss: Cath Placed During This Visit: yes, but has since been removed by the nurse Reason for Continuing Indwelling Catheter: Decision to DC Catheter Urinary Catheter Date of Insertion: 03/11/20 Urinary Catheter Time of Insertion: 12:39 Date Urinary Catheter Removed: 03/12/20 Time Urinary Catheter Discontinued: 06:00 Discharge Data Data Completed and Pending: Pending at discharge Category Date Time Status ES surgery / GI i mages Routine Exams 03/11/20 12:48 Taken Pathology: Surgic al [PTH] Routine Pth 03/11/20 14:11 Received Labs from last 24 hours 03/12/20 03/11/20 04:10 15:59 WBC 9.1 RBC 4.07 L Hgb 11.7 Hct 35.2 L MCV 86.5 MCH 28.7 MCHC 33.2 RDW 13.5 Plt Count 191 MPV 9.5 POC Glucose 145 H Vitals: Last Vital Signs Temp 98.6 F 03/12/20 09:49 Pulse 90 03/12/20 09:49 Resp 16 03/12/20 09:49 BP 106/71 03/12/20 09:49 Pulse Ox 95 03/11/20 16:00 Discharge Plan Discharge Patient Disposition: Home Condition: Stable Prescriptions: [place] 5-325 mg tablet 1 tab PO Q4H PRN (Reason: pain) Qty: 30 RF: 0 ferrous sulfate 325 mg (65 mg iron) tablet 325 mg PO BID Qty: 60 RF: 0 ibuprofen 800 mg tablet 800 mg PO TID PRN (Reason: pain) Qty: 60 RF: 0 Continued metformin 1,000 mg tablet 1,000 mg PO BID RF: 0 omeprazole magnesium [Prilosec OTC] 20 mg tablet,delayed release (DR/EC) 20 mg PO DAILY RF: 0 lisinopril 5 mg tablet 5 mg PO DAILY RF: 0 Basaglar KwikPen U-100 Insulin 100 unit/mL (3 mL) insulin pen 60 unit SUBCUT DAILY RF: 0 multivitamin Tablet 1 tab PO DAILY RF: 0 cholecalciferol (vitamin D3) 25 mcg (1,000 unit) capsule 25 mcg PO DAILY RF: 0 ascorbic acid (vitamin C) 100 mg tablet 100 mg PO DAILY RF: 0 Zyrtec 10 mg capsule 10 mg PO DAILY RF: 0 Digestive Advantage Advanced 10 billion cell capsule 1 cell PO DAILY RF: 0 Ozempic 0.25 mg or 0.5 mg(2 mg/1.5 mL) pen injector 1 mg SUBCUT .weekly RF: 0 insulin aspart U-100 [Novolog Flexpen U-100 Insulin] 100 unit/mL (3 mL) insulin pen 5 unit SUBCUT TID RF: 0 Discharge Orders: Discharge Order (Routine); Ordered 03/12/20 Ordered By: Ilir Vásquez Referrals: Ilir Vásquez MD [Physician] - 2 weeks Discharge Diet: Usual diet Discharge Activity: Increase activity as tolerated Patient Instructions: Vaginal Hysterectomy (DC), Bladder Sling Procedures (DC) Activity Restrictions/Additional Instructions: 1. Please call [facility] [place] [facility] on next working day to make your post-operative appointment in 2 weeks. 2. Please stay home until you come back to the clinic on first post-operative check up. 3. Please follow instructions on your medications CAREFULLY. 4. If you have abdominal incision, do not cover it unless dressing is necessary because of drainage. OK to shower, but avoid bath. Leave steri-strips until they fall off. If they are still on one week after surgery, you may remove them. 5. If you had vaginal surgery, your doctor may instruct you to take SITZ bath. 6. Yellow, blood tinged odorous vaginal discharge is usually normal after hysterectomy or vaginal surgeries. 7. No sexual intercourse, tampons, or douches until you are completely released from the post-operative care. 8. Avoid constipation by eating right and maybe using some Metamucil or Milk of Magnesia. 9. All prescription refills are given during the working hours. Please do no wait till it runs out. Call the clinic at [phone] before your medication runs out. The clinic will get in touch with your doctor to prescribe medicati ons if necessary. 10. Please remain within 40 mile radius from our hospital because emergencies do happen now and then during the post-operative period. 11. If you have stairs at home, take one step at a time slowly and minimize the number of trips. It helps to stay in one floor for the next few days. No lifting except what you can lift by one hand until you are released from the post-operative care. 12. Driving is discouraged until you are well healed. It may be 3-4 weeks before you feel strong enough to drive. You should be able to turn and look through the rear window without pain and you should be able to push the brake pedal very hard without pain before you drive. No fast rules, but SAFETY should be your primary concern. DO NOT drive if you are on sedating medications such as narcotics. 13. Call the clinic (during working hours) to make urgent appointment or go to the Emergency room, if any of the following occurs: i. Vaginal bleeding becomes heavy, more than a period. ii. Incision becomes red and sore, or drains pus. iii. Your temperature is over 100.4 or you have chill. iv. IV site becomes red and swollen (a little ``knot?? is usually OK) v. Persistent nausea and vomiting vi. Persistent constipation or diarrhea vii. Rash or allergic reaction to medications. Discharge Attestations PEDIATRIC PHYSICAL THERAPIST Time Spent in Discharge Care*: greater than 30 min Coding Level of Care Code Acute Blankbook Stitching Machine Operator for Chg Fwd Diagnoses POP-Q stage 1 cystocele N81.10 Urinary, incontinence, stress female N39.3 Uterine leiomyoma D25.1; D25.0; D25.2 Uterine leiomyoma location: intramural, submucous, and subserous Postmenopausal bleeding N95.0
[2020-03-12 15:13] VITALS: BP 114/76; PULSE 87; RESP 16; TEMP 36.9
== END 2020-03-12 15:20 | disposition home or self-care (01) ==
LOC: OBGYN 14:39
PROVIDERS: Admitting Provider Obstetrics & Gynecology; PCP Family Medicine; Visit Provider Obstetrics & Gynecology
PROC: (CPT 58262; principal; 2020-03-11 11:50)
PROC: (CPT 58720; 2020-03-11 11:50)
PROC: (CPT 57288; 2020-03-11 11:50)
PROC: 0TJB8ZZ Inspection of Bladder, Via Natural or Artificial Opening Endoscopic (ICD-10-PCS; CPT 52000; 2020-03-11 11:50)
DX: N95.0 Postmenopausal bleeding (principal); N81.10 Cystocele, unspecified; N39.3 Stress incontinence (female) (male); N25.1 Nephrogenic diabetes insipidus; D64.9 Anemia, unspecified; D25.0 Submucous leiomyoma of uterus; D25.1 Intramural leiomyoma of uterus; D25.2 Subserosal leiomyoma of uterus; Z86.16 Personal history of COVID-19; I10 Essential (primary) hypertension; K21.9 Gastro-esophageal reflux disease without esophagitis; E11.9 Type 2 diabetes mellitus without complications; E66.01 Morbid (severe) obesity due to excess calories; Z68.34 Body mass index [BMI] 34.0-34.9, adult
CPT/HCPCS: 58262; 12345; 36415; 36416; 51702; 51798; 80053; 81003; 81025; 82962; 84703; 85025; 85027; 86850; 86900; 88307; 96365; 96372; C1713; G0378; J0694; J1815 ×2; J1885; J1940; J2405; J2704; J3010; J3490; J7040

== ENCOUNTER → 2020-12-30 13:59 | Outpatient (BNVA) | payer BC, SELFPAY | PROVIDERS: PCP Family Medicine; Visit Provider Nurse Practitioner Women's Health | DX: R30.0 Dysuria (principal) | CPT/HCPCS: 87086 ==

== ENCOUNTER → 2021-06-30 08:30 | Outpatient (BNVA) | payer BC, SELFPAY | PROVIDERS: PCP Family Medicine; Visit Provider Obstetrics & Gynecology | DX: R39.9 Unspecified symptoms and signs involving the genitourinary system (principal) | CPT/HCPCS: 84315; 87077; 87086; 87184 ==

== ENCOUNTER → 2022-03-01 11:17 | Outpatient (BNVA) | payer BC, SELFPAY | PROVIDERS: PCP Family Medicine; Visit Provider Family Medicine | DX: E11.9 Type 2 diabetes mellitus without complications (principal); I10 Essential (primary) hypertension; F32.A Depression, unspecified; N95.1 Menopausal and female climacteric states | CPT/HCPCS: 80053; 80061; 82607; 83036 ==

== ENCOUNTER 2022-12-29 07:48 | Outpatient (CLI) | payer BC, SELFPAY ==
--- NOTE | 2022-12-29 08:05 | MM_ITS ---
WS: [id number] SCREENING DIGITAL BREAST TOMOSYNTHESIS MAMMOGRAM WITH CAD HISTORY: Z12.31 - Encounter for screening mammogram for malignant ... COMPARISON: 02/20/2020, 01/28/2016 Bilateral CC and MLO with tomosynthesis and synthetic mammography submitted. Computer aided detection analyzed. Breast composition: The breasts are heterogeneously dense, which may obscure small masses. Increasing nodularity and soft tissue posterior to the LEFT nipple. This may be a slightly inverted nipple or n ipple not visualized in profile but needs to be further evaluated due to progression since 2020. Othe rwise no interval change. IMPRESSION: MM/[place] [id number] BI-RADS: 0-Incomplete: Need additional imaging evaluation FOLLOW UP: Need Additional Imaging LEFT breast: Spot compression views (CC and MLO). True ML. Ultrasound to follow if abnormality persists.
== END 2022-12-29 07:49 | disposition home or self-care (01) ==
LOC: RAD 07:48
PROVIDERS: PCP Family Medicine; Visit Provider Nurse Practitioner Women's Health
DX: Z12.31 Encounter for screening mammogram for malignant neoplasm of breast (principal)
CPT/HCPCS: 77063; 77067

== ENCOUNTER 2023-01-30 10:57 | Outpatient (CLI) | payer BC, SELFPAY ==
--- NOTE | 2023-01-30 11:09 | MM_ITS ---
WS: [id number] ADDITIONAL VIEWS LEFT MAMMOGRAM with tomosynthesis. LEFT BREAST ULTRASOUND HISTORY: R92.8 - Other abnormal and inconclusive findings on mammogram COMPARISON: 12/29/2022, 12/20/2020 LEFT MAMMOGRAM: Spot compression views and true ML with tomosynthesis and sympathetic mammography. With the nipple in profile there is still increased soft tissue posterior to the nipple. This will ne ed to be further evaluated by ultrasound. No nipple retraction. LEFT BREAST ULTRASOUND 2-D and color Doppler imaging submitted. No solid mass identified posterior to the nipple. There is a tiny cyst measuring 3 mm. IMPRESSION: MM/[place] [id number] BI-RADS: 2-Benign FOLLOW UP: 1 Year Follow-up
--- NOTE | 2023-01-30 11:30 | US_ITS ---
WS: [email or web address] ADDITIONAL VIEWS LEFT MAMMOGRAM with tomosynthesis. LEFT BREAST ULTRASOUND HISTORY: R92.8 - Other abnormal and inconclusive findings on mammogram COMPARISON: 12/29/2022, 12/20/2020 LEFT MAMMOGRAM: Spot compression views and true ML with tomosynthesis and sympathetic mammography. With the nipple in profile there is still increased soft tissue posterior to the nipple. This will ne ed to be further evaluated by ultrasound. No nipple retraction. LEFT BREAST ULTRASOUND 2-D and color Doppler imaging submitted. No solid mass identified posterior to the nipple. There is a tiny cyst measuring 3 mm. IMPRESSION: US/US breast LT limited* [id number] BI-RADS: 2-Benign FOLLOW UP: 1 Year Follow-up
== END 2023-01-30 10:58 | disposition home or self-care (01) ==
LOC: RAD 10:57
PROVIDERS: PCP Family Medicine; Visit Provider Nurse Practitioner Women's Health
DX: R92.8 Other abnormal and inconclusive findings on diagnostic imaging of breast (principal)
CPT/HCPCS: 76642; 77061; G0279

== ENCOUNTER → 2023-07-11 08:53 | Outpatient (BNVA) | payer BC, SELFPAY | PROVIDERS: PCP Family Medicine; Visit Provider Family Medicine | DX: F32.A Depression, unspecified (principal); I10 Essential (primary) hypertension; R00.2 Palpitations; E11.9 Type 2 diabetes mellitus without complications; E03.9 Hypothyroidism, unspecified | CPT/HCPCS: 80053; 80061; 82607; 83036; 83735; 84443; 85025 ==

== ENCOUNTER → 2024-12-11 10:18 | Outpatient (BNVA) | payer BC, SELFPAY | PROVIDERS: PCP Family Medicine; Visit Provider Nurse Practitioner Women's Health | DX: N95.1 Menopausal and female climacteric states (principal) | CPT/HCPCS: 82670 ==

== ENCOUNTER 2024-12-25 14:09 | Outpatient (CLI) | payer BC, SELFPAY ==
--- NOTE | 2024-12-25 14:20 | MM_ITS ---
WS: [email or web address] BILATERAL 3D TOMOSYNTHESIS DIGITAL SCREENING MAMMOGRAPHY WITH CAD CLINICAL INFORMATION: Z12.31 - Encounter for screening mammogram for malignant ... HISTORY: Screening mammogram. No current complaints. COMPARISON: 2022 TECHNIQUE: Bilateral CC and MLO views. FINDINGS: The breasts are composed of heterogeneous fibroglandular density tissue, which can limit the detection of small underlying mass lesions. No suspicious mass, asymmetry, calcifications, or architectural distortion. No evidence of malignancy. Incidental punctate calcification RIGHT breast MM/MM [facility] tomosynthesis [id number] IMPRESSION: DENSITY: The breasts are heterogeneously dense, which may obscure small masses. BI-RADS: 2 - Benign FOLLOW UP: 1 Year Follow-up Recommend return to annual screening mammography.
--- NOTE | 2024-12-25 15:00 | XR_ITS ---
WS: [email or web address] DEXA (DUAL ENERGY X-RAY ABSORPTIOMETRY) Bone mineral density was performed using a [employer] machine. HISTORY: Z78.0 - Asymptomatic menopausal state COMPARISON: None available. Lumbar spine BMD (L1-L4): 1.342 g/cm2 T score: 1.4 Z score: 1.2 Total hip BMD: Left: 1.499 g/cm2. T score: 3.9 Z score: 3.9 Right: 1.523 g/cm2. T score: 4.1 Z score: 4.1 10 year probability of a major osteoporotic fracture is 3.4%. XR/XR DEXA axial skeleton* [id number] IMPRESSION: NORMAL BONE MINERAL DENSITY based upon the WHO classification for females.
== END 2024-12-25 14:10 | disposition home or self-care (01) ==
LOC: RAD 14:11
PROVIDERS: PCP Family Medicine; Visit Provider Nurse Practitioner Women's Health
DX: Z12.31 Encounter for screening mammogram for malignant neoplasm of breast (principal); Z78.0 Asymptomatic menopausal state; Z13.820 Encounter for screening for osteoporosis; Z79.899 Other long term (current) drug therapy; R92.333 Mammographic heterogeneous density, bilateral breasts; R92.323 Mammographic fibroglandular density, bilateral breasts; R92.1 Mammographic calcification found on diagnostic imaging of breast
CPT/HCPCS: 77063; 77067; 77080